=== PATIENT | female | born 1945 | race Caucasian/White ===

== ENCOUNTER → 2017-02-01 | Outpatient (CLI) | payer MEDICARE ==
[~2017-02-01] MED LIST: OMNIPAQUE 350 MG/ML, 100ML BOTTLE ONE
== END | disposition home or self-care (01) ==
LOC: CFH 13:20
PROVIDERS: ATTEND Family Medicine
DX: K57.30 Diverticulosis of large intestine without perforation or abscess without bleeding (principal); K76.89 Other specified diseases of liver; M48.54XA Collapsed vertebra, not elsewhere classified, thoracic region, initial encounter for fracture; M48.56XA Collapsed vertebra, not elsewhere classified, lumbar region, initial encounter for fracture; R93.8 Abnormal findings on diagnostic imaging of other specified body structures; M51.37 Other intervertebral disc degeneration, lumbosacral region; Z90.49 Acquired absence of other specified parts of digestive tract
CPT/HCPCS: 74177; Q9967

== ENCOUNTER 2017-03-09 08:55 | Day surgery (SDC) | payer MEDICARE ==
[2017-03-05 12:41] VITALS: BP 138/90
[~2017-03-09] VITALS: Ht 147.3 cm; Wt 35.9 kg
[~2017-03-09 08:55] MED LIST changes: +CALC1TAB72 PO; +FENTANYL PF 100 MCG/2ML ONE; +FOLI0.8T2 PO; +HYDR25TA6 PO; +INFL100V IV; +METH16TA2 PO; +METH2.5T PO; +MIDAZOLAM 1 MG/ML, 2ML ONE; +OMEP-110 PO; -OMNIPAQUE 350 MG/ML, 100ML BOTTLE ONE; +ONDA4TAB13 SL; +OXYC10TA6 PO; +POLY17PO3 PO; +SENN-66 PO; +TRAM50TA2 PO; +ZOLP-413 PO; +potassium PO
[2017-03-09] MEDS ORDERED: LACTATED RINGERS 1,000 ML IV SCH (09:21)
[2017-03-09] MEDS ORDERED: LIDOCAINE 1%, 2ML SQ PRN (09:30)
[2017-03-09 09:32] VITALS: BP 138/90
[2017-03-09] MEDS ORDERED: EPHEDRINE 50 MG/ML, 1ML ONE (10:40)
[2017-03-09] MEDS ORDERED: SUCCINYLCHOLINE 20 MG/ML, 10ML ONE (10:40)
[2017-03-09] MEDS ORDERED: PROPOFOL 10 MG/ML, 20ML ONE (10:40)
[2017-03-09] MEDS ORDERED: FENTANYL PF 100 MCG/2ML IV PRN (11:00)
[2017-03-09] MEDS ORDERED: METOCLOPRAMIDE 5 MG/ML, 2ML IV PRN (11:00)
[2017-03-09] MEDS ORDERED: HYDROmorphone 1 MG/ML, 1ML IV PRN (11:00)
[2017-03-09] MEDS ORDERED: ONDANSETRON 2MG/ML, 2ML IVPush PRN (11:00)
[2017-03-09] MEDS ORDERED: hydrALAzine 20 MG/ML, 1ML IV PRN (11:00)
[2017-03-09] MEDS ORDERED: OXYcodone 5 MG/5 ML ORAL.SOL UDC PO PRN (11:00)
[2017-03-09] MEDS ORDERED: ACETAMINOPHEN 325 MG TABLET PO PRN (11:00)
[2017-03-09] MEDS ORDERED: LABETALOL 5MG/ML, 20ML IV PRN (11:00)
[2017-03-09] MEDS ORDERED: OXYcodone 5 MG/5 ML ORAL.SOL UDC ONE (11:37)
== END 2017-03-09 14:10 ==
LOC: OUT 08:55
PROVIDERS: ATTEND Internal Medicine Geriatric Medicine
DX: K29.50 Unspecified chronic gastritis without bleeding (principal); K83.8 Other specified diseases of biliary tract; F10.10 Alcohol abuse, uncomplicated; Z88.1 Allergy status to other antibiotic agents; Z88.8 Allergy status to other drugs, medicaments and biological substances; Z87.39 Personal history of other diseases of the musculoskeletal system and connective tissue; Z98.49 Cataract extraction status, unspecified eye; Z90.710 Acquired absence of both cervix and uterus; Z98.890 Other specified postprocedural states; Z80.8 Family history of malignant neoplasm of other organs or systems; Z83.3 Family history of diabetes mellitus; Z82.49 Family history of ischemic heart disease and other diseases of the circulatory system
CPT/HCPCS: 43239; 43259; 88104; 88305; 88333; J0330; J2250; J2704; J3010; J7120

== ENCOUNTER 2018-11-29 06:51 | Day surgery (SDC) | payer MEDICARE ==
[~2018-11-29] VITALS: Ht 137.2 cm; Wt 29.9 kg
[~2018-11-29 06:51] MED LIST changes: -FENTANYL PF 100 MCG/2ML ONE; -MIDAZOLAM 1 MG/ML, 2ML ONE; +POLY17PO29 PO; -POLY17PO3 PO; -SENN-66 PO; +SENN1TAB59 PO
[2018-11-29] MEDS ORDERED: LACTATED RINGERS 1,000 ML IV SCH (07:23)
[2018-11-29 07:29] VITALS: BP 159/103
[2018-11-29 07:43] VITALS: BP 159/103
[2018-11-29] MEDS ORDERED: CITA20TA9 PO (07:56)
[2018-11-29 08:26] LABS: ALANINE AMINOTRANSFERASE 45 U/L (12-78); ALBUMIN 3.2 g/dL (3.4-5.0); ANION GAP 7 mmol/L (5-15); CHLORIDE 102 mmol/L (98-107); CREATININE 0.63 mg/dL (0.55-1.02)
[2018-11-29 08:29] LABS: ALKALINE PHOSPHATASE 444 U/L (45-117); BILIRUBIN,TOTAL 0.3 mg/dL (0.2-1.0); TOTAL PROTEIN 6.3 g/dL (6.4-8.2)
[2018-11-29] MEDS ORDERED: DIPHENHYDRAMINE 50 MG/ML, 1ML IVPush PRN (09:00)
[2018-11-29] MEDS ORDERED: EPHEDRINE 50 MG/ML, 1ML IM PRN (09:00)
[2018-11-29] MEDS ORDERED: MORPHINE SULFATE 4 MG/ML, 1ML IVPush PRN (09:00)
[2018-11-29] MEDS ORDERED: ONDANSETRON ODT 8 MG PO PRN (09:00)
[2018-11-29] MEDS ORDERED: DIAZEPAM 5 MG/ML, 2ML IVPush PRN (09:00)
[2018-11-29] MEDS ORDERED: ONDANSETRON 2MG/ML, 2ML IV PRN (09:00)
[2018-11-29] MEDS ORDERED: OXYcodone 5 MG/5 ML ORAL.SOL UDC PO PRN (09:00)
[2018-11-29] MEDS ORDERED: MIDAZOLAM 1 MG/ML, 2ML IV PRN (09:00)
[2018-11-29] MEDS ORDERED: FENTANYL PF 100 MCG/2ML IV PRN (09:00)
[2018-11-29] MEDS ORDERED: PROPOFOL 10 MG/ML, 20ML ONE ×3 (09:21→11:12)
[2018-11-29 09:28] LABS: MEAN CORPUSCULAR HEMOGLOBIN 28.2 pg (27.0-34.8); MEAN CORPUSCULAR HGB CONC 33.2 g/dL (32.4-35.8); MEAN CORPUSCULAR VOLUME 84.9 fL (80-100); MEAN PLATELET VOLUME 8.2 fL (7.4-10.4); PLATELET COUNT 290 x10^3/uL (130-400); RED BLOOD COUNT 4.83 x10^6/uL (3.82-5.3); RED CELL DISTRIBUTION WIDTH 17.2 % (9.6-15.2)
[2018-11-29] MEDS ORDERED: GLUCAGON 1 MG ONE (09:49)
[2018-11-29 09:56] LABS: MD YES
[2018-11-29 09:59] LABS: BAND#(MANUAL) 1.03 x10^3/uL; BANDS%(MANUAL) 5 % (0-7); LYMPH#(MANUAL) 3.08 x10^3/uL (1-3.4); LYMPHS% (MANUAL) 15 % (22-44); METAMYELOCYTES# (MANUAL) 0.82 x10^3/uL (0-0); METAMYELOCYTES% (MANUAL) 4 % (0-1); MONOS#(MANUAL) 1.03 x10^3/uL (0.3-2.7); MONOS% (MANUAL) 5 % (2-9); MYELOCYTES# (MANUAL) 0.62 x10^3/uL (0-0); MYELOCYTES% (MANUAL) 3 % (0-0); SEG#(MANUAL) 13.94 x10^3/uL (1.8-6.8); SEGS% (MANUAL) 68 % (42-75)
[2018-11-29 10:00] LABS: <PLATELET ESTIMATE> ADEQUATE; <PLT MORPHOLOGY> NORMAL PLT MORPH; ANISOCYTOSIS 1+; OVALOCYTES 1+
[2018-11-29] MEDS ORDERED: ONDANSETRON 2MG/ML, 2ML ONE (10:32)
[2018-11-29] MEDS ORDERED: PROMETHAZINE 25 MG SUPP PR ONE (12:00)
== END 2018-11-29 13:00 | disposition home or self-care (01) ==
LOC: OUT 06:51
PROVIDERS: ATTEND Internal Medicine
DX: D12.6 Benign neoplasm of colon, unspecified (principal); K31.9 Disease of stomach and duodenum, unspecified; R63.4 Abnormal weight loss; M06.9 Rheumatoid arthritis, unspecified; M32.9 Systemic lupus erythematosus, unspecified; Z68.1 Body mass index [BMI] 19.9 or less, adult; Z87.11 Personal history of peptic ulcer disease; Z79.899 Other long term (current) drug therapy; Z79.891 Long term (current) use of opiate analgesic; Z88.2 Allergy status to sulfonamides; Z88.8 Allergy status to other drugs, medicaments and biological substances; Z91.048 Other nonmedicinal substance allergy status; Z90.49 Acquired absence of other specified parts of digestive tract; Z98.1 Arthrodesis status; Z98.890 Other specified postprocedural states; Z83.3 Family history of diabetes mellitus; Z82.49 Family history of ischemic heart disease and other diseases of the circulatory system; Z80.9 Family history of malignant neoplasm, unspecified
CPT/HCPCS: 36415; 43239; 45380; 80053; 85025; 88305; 93005; J1610; J2405; J2704; J7120

== ENCOUNTER 2018-12-30 13:00 | Outpatient (CLI) | payer MEDICARE ==
[~2018-12-30 13:00] MED LIST changes: +CITA20TA9 PO
[2018-12-30] MEDS ORDERED: OMNIPAQUE 350 MG/ML, 75ML BOTTLE ONE (14:54)
== END 2018-12-30 23:59 | disposition home or self-care (01) ==
LOC: RAD 13:00
PROVIDERS: ATTEND Internal Medicine
DX: N82.3 Fistula of vagina to large intestine (principal)
CPT/HCPCS: 72193; Q9967

== ENCOUNTER → 2019-02-01 | Outpatient (CLI) | payer MEDICARE ==
[~2019-02-01] MED LIST changes: +AMOX1TAB61 PO; +CHOL100011 PO; +OXYC-302 PO; +POTASSIUM PO
== END | disposition home or self-care (01) ==
LOC: WOUND 08:26
PROVIDERS: ATTEND Internal Medicine
DX: Z93.3 Colostomy status (principal); M06.9 Rheumatoid arthritis, unspecified; G89.4 Chronic pain syndrome; M19.90 Unspecified osteoarthritis, unspecified site; Z90.49 Acquired absence of other specified parts of digestive tract; Z90.710 Acquired absence of both cervix and uterus; Z87.891 Personal history of nicotine dependence
CPT/HCPCS: G0463

== ENCOUNTER 2019-02-02 11:41 | Inpatient (IN) | payer MEDICARE ==
[~2019-02-02] VITALS: Ht 137.2 cm; Wt 35.4 kg
[2019-02-04 12:54] VITALS: BP 144/83
== END 2019-02-04 17:15 | disposition home health service (06) | DRG 330 ==
LOC: ORIP 11:41 → 4NOR 18:21 → DCLOUNGE 02-04 17:06
PROVIDERS: ADMIT Colon & Rectal Surgery; ATTEND Colon & Rectal Surgery
PROC: 0D1N4Z4 Bypass Sigmoid Colon to Cutaneous, Percutaneous Endoscopic Approach (ICD-10-PCS; principal; 2019-02-02)
PROC: 8E0W4CZ Robotic Assisted Procedure of Trunk Region, Percutaneous Endoscopic Approach (ICD-10-PCS; 2019-02-02)
PROC: 0DBN4ZZ Excision of Sigmoid Colon, Percutaneous Endoscopic Approach (ICD-10-PCS; 2019-02-02)
DX: K57.32 Diverticulitis of large intestine without perforation or abscess without bleeding (principal); N82.3 Fistula of vagina to large intestine; Z68.1 Body mass index [BMI] 19.9 or less, adult; M19.90 Unspecified osteoarthritis, unspecified site; D89.9 Disorder involving the immune mechanism, unspecified; M06.9 Rheumatoid arthritis, unspecified; G89.29 Other chronic pain; Z85.828 Personal history of other malignant neoplasm of skin; Z90.49 Acquired absence of other specified parts of digestive tract; Z90.710 Acquired absence of both cervix and uterus; Z80.8 Family history of malignant neoplasm of other organs or systems; Z82.49 Family history of ischemic heart disease and other diseases of the circulatory system; Z87.891 Personal history of nicotine dependence; E63.9 Nutritional deficiency, unspecified
CPT/HCPCS: 36415; 80048; 83735; 85025; 86850; 86900; 87070; 87075; 87205; 88307; C1729; G0378; J1100; J1170; J1650; J1885; J2250; J2405; J2543; J2704; J3010; J7509; J2370; J2765; J3490; J7120

== ENCOUNTER 2019-05-11 09:46 | Outpatient (CLI) | payer MEDICARE ==
[~2019-05-11 09:46] MED LIST changes: +DOCU-131 PO; +ENOX40SY4 SQ; +METH500T7 PO; +ONDA4TAB13 PO; +OXYC1TAB7 PO; +POLY17PO5 PO
== END 2019-05-11 23:59 | disposition home or self-care (01) ==
LOC: WOUND 09:46
PROVIDERS: ATTEND Podiatrist Foot & Ankle Surgery
DX: L97.212 Non-pressure chronic ulcer of right calf with fat layer exposed (principal); S81.812A Laceration without foreign body, left lower leg, initial encounter; M06.9 Rheumatoid arthritis, unspecified; G89.4 Chronic pain syndrome; I10 Essential (primary) hypertension; Z87.891 Personal history of nicotine dependence; Z90.49 Acquired absence of other specified parts of digestive tract; Z90.710 Acquired absence of both cervix and uterus; Z96.641 Presence of right artificial hip joint; Z88.2 Allergy status to sulfonamides; Z88.8 Allergy status to other drugs, medicaments and biological substances; X58.XXXA Exposure to other specified factors, initial encounter; Y92.89 Other specified places as the place of occurrence of the external cause; Y99.8 Other external cause status; Y93.89 Activity, other specified; Z93.3 Colostomy status
CPT/HCPCS: 11042; 11045; G0463

== ENCOUNTER 2019-05-16 08:11 | Outpatient (CLI) | payer MEDICARE | END 2019-05-16 23:59 | disposition home or self-care (01) | LOC: WOUND 08:11 | PROVIDERS: ATTEND Nurse Practitioner Family | DX: L97.212 Non-pressure chronic ulcer of right calf with fat layer exposed (principal); S81.812D Laceration without foreign body, left lower leg, subsequent encounter; G89.4 Chronic pain syndrome; I10 Essential (primary) hypertension; E46 Unspecified protein-calorie malnutrition; M05.59 Rheumatoid polyneuropathy with rheumatoid arthritis of multiple sites; A49.02 Methicillin resistant Staphylococcus aureus infection, unspecified site; Z87.891 Personal history of nicotine dependence; Z96.641 Presence of right artificial hip joint; Z90.49 Acquired absence of other specified parts of digestive tract; Z90.710 Acquired absence of both cervix and uterus; Z88.2 Allergy status to sulfonamides; Z88.8 Allergy status to other drugs, medicaments and biological substances; Z79.52 Long term (current) use of systemic steroids; Z79.1 Long term (current) use of non-steroidal anti-inflammatories (NSAID); Z68.21 Body mass index [BMI] 21.0-21.9, adult; Z93.3 Colostomy status; X58.XXXD Exposure to other specified factors, subsequent encounter | CPT/HCPCS: 11042; 11045 ==

== ENCOUNTER → 2019-05-23 | Outpatient (CLI) | payer MEDICARE | END | disposition home or self-care (01) | LOC: WOUND 08:54 | PROVIDERS: ATTEND Nurse Practitioner Family | DX: L97.212 Non-pressure chronic ulcer of right calf with fat layer exposed (principal); S81.812D Laceration without foreign body, left lower leg, subsequent encounter; M06.9 Rheumatoid arthritis, unspecified; G89.4 Chronic pain syndrome; I10 Essential (primary) hypertension; Z87.891 Personal history of nicotine dependence; Z90.49 Acquired absence of other specified parts of digestive tract; Z90.710 Acquired absence of both cervix and uterus; Z96.641 Presence of right artificial hip joint; Z88.2 Allergy status to sulfonamides; Z88.8 Allergy status to other drugs, medicaments and biological substances; Z93.3 Colostomy status; X58.XXXD Exposure to other specified factors, subsequent encounter | CPT/HCPCS: 11042; 11045; 97606 ==

== ENCOUNTER → 2019-05-31 | Outpatient (CLI) | payer MEDICARE | END | disposition home or self-care (01) | LOC: WOUND 09:44 | PROVIDERS: ATTEND Internal Medicine | DX: L89.896 Pressure-induced deep tissue damage of other site (principal); S81.812D Laceration without foreign body, left lower leg, subsequent encounter; S81.811D Laceration without foreign body, right lower leg, subsequent encounter; M05.60 Rheumatoid arthritis of unspecified site with involvement of other organs and systems; G89.4 Chronic pain syndrome; I10 Essential (primary) hypertension; E46 Unspecified protein-calorie malnutrition; Z87.891 Personal history of nicotine dependence; Z90.49 Acquired absence of other specified parts of digestive tract; Z90.710 Acquired absence of both cervix and uterus; Z96.641 Presence of right artificial hip joint; Z88.2 Allergy status to sulfonamides; Z88.8 Allergy status to other drugs, medicaments and biological substances; Z93.3 Colostomy status; A49.02 Methicillin resistant Staphylococcus aureus infection, unspecified site; Z79.52 Long term (current) use of systemic steroids; Z68.21 Body mass index [BMI] 21.0-21.9, adult; X58.XXXD Exposure to other specified factors, subsequent encounter | CPT/HCPCS: 11042; 11045 ==

== ENCOUNTER → 2019-06-07 | Outpatient (CLI) | payer MEDICARE | END | disposition home or self-care (01) | LOC: WOUND 13:07 | PROVIDERS: ATTEND Internal Medicine | DX: L89.896 Pressure-induced deep tissue damage of other site (principal); L97.222 Non-pressure chronic ulcer of left calf with fat layer exposed; M05.60 Rheumatoid arthritis of unspecified site with involvement of other organs and systems; M05.59 Rheumatoid polyneuropathy with rheumatoid arthritis of multiple sites; G89.4 Chronic pain syndrome; I10 Essential (primary) hypertension; E46 Unspecified protein-calorie malnutrition; A49.02 Methicillin resistant Staphylococcus aureus infection, unspecified site; Z87.891 Personal history of nicotine dependence; Z90.49 Acquired absence of other specified parts of digestive tract; Z90.710 Acquired absence of both cervix and uterus; Z96.641 Presence of right artificial hip joint; Z88.2 Allergy status to sulfonamides; Z88.8 Allergy status to other drugs, medicaments and biological substances; Z79.52 Long term (current) use of systemic steroids; Z68.21 Body mass index [BMI] 21.0-21.9, adult; Z79.1 Long term (current) use of non-steroidal anti-inflammatories (NSAID); Z93.3 Colostomy status | CPT/HCPCS: 11042; 11045 ==

== ENCOUNTER 2019-06-14 08:50 | Outpatient (CLI) | END 2019-06-14 23:59 | disposition home or self-care (01) | LOC: WOUND 08:50 | PROVIDERS: ATTEND Internal Medicine | DX: L89.896 Pressure-induced deep tissue damage of other site (principal); L97.222 Non-pressure chronic ulcer of left calf with fat layer exposed; M05.60 Rheumatoid arthritis of unspecified site with involvement of other organs and systems; M05.59 Rheumatoid polyneuropathy with rheumatoid arthritis of multiple sites; G89.4 Chronic pain syndrome; I10 Essential (primary) hypertension; E46 Unspecified protein-calorie malnutrition; A49.02 Methicillin resistant Staphylococcus aureus infection, unspecified site; Z87.891 Personal history of nicotine dependence; Z90.49 Acquired absence of other specified parts of digestive tract; Z90.710 Acquired absence of both cervix and uterus; Z96.641 Presence of right artificial hip joint; Z88.2 Allergy status to sulfonamides; Z88.8 Allergy status to other drugs, medicaments and biological substances; Z79.52 Long term (current) use of systemic steroids; Z68.21 Body mass index [BMI] 21.0-21.9, adult; Z79.1 Long term (current) use of non-steroidal anti-inflammatories (NSAID); Z93.3 Colostomy status | CPT/HCPCS: 11042; 11045 ==

== ENCOUNTER 2019-06-21 13:28 | Outpatient (CLI) | payer MEDICARE | END 2019-06-21 23:59 | disposition home or self-care (01) | LOC: WOUND 13:28 | PROVIDERS: ATTEND Internal Medicine | DX: L89.896 Pressure-induced deep tissue damage of other site (principal); L97.222 Non-pressure chronic ulcer of left calf with fat layer exposed; M05.60 Rheumatoid arthritis of unspecified site with involvement of other organs and systems; M05.59 Rheumatoid polyneuropathy with rheumatoid arthritis of multiple sites; G89.4 Chronic pain syndrome; I10 Essential (primary) hypertension; E46 Unspecified protein-calorie malnutrition; A49.02 Methicillin resistant Staphylococcus aureus infection, unspecified site; Z87.891 Personal history of nicotine dependence; Z90.49 Acquired absence of other specified parts of digestive tract; Z90.710 Acquired absence of both cervix and uterus; Z96.641 Presence of right artificial hip joint; Z88.2 Allergy status to sulfonamides; Z88.8 Allergy status to other drugs, medicaments and biological substances; Z79.52 Long term (current) use of systemic steroids; Z68.21 Body mass index [BMI] 21.0-21.9, adult; Z79.1 Long term (current) use of non-steroidal anti-inflammatories (NSAID); Z93.3 Colostomy status | CPT/HCPCS: 97597; 97598 ==

== ENCOUNTER → 2019-06-28 | Outpatient (CLI) | payer MEDICARE | END | disposition home or self-care (01) | LOC: WOUND 09:35 | PROVIDERS: ATTEND Internal Medicine | DX: L89.896 Pressure-induced deep tissue damage of other site (principal); L97.222 Non-pressure chronic ulcer of left calf with fat layer exposed; M05.60 Rheumatoid arthritis of unspecified site with involvement of other organs and systems; M05.59 Rheumatoid polyneuropathy with rheumatoid arthritis of multiple sites; G89.4 Chronic pain syndrome; I10 Essential (primary) hypertension; E46 Unspecified protein-calorie malnutrition; A49.02 Methicillin resistant Staphylococcus aureus infection, unspecified site; Z87.891 Personal history of nicotine dependence; Z90.49 Acquired absence of other specified parts of digestive tract; Z90.710 Acquired absence of both cervix and uterus; Z96.641 Presence of right artificial hip joint; Z88.2 Allergy status to sulfonamides; Z88.8 Allergy status to other drugs, medicaments and biological substances; Z79.52 Long term (current) use of systemic steroids; Z68.21 Body mass index [BMI] 21.0-21.9, adult; Z79.1 Long term (current) use of non-steroidal anti-inflammatories (NSAID); Z93.3 Colostomy status | CPT/HCPCS: 97597; 97598 ==

== ENCOUNTER → 2019-07-05 | Outpatient (CLI) | payer MEDICARE | END | disposition home or self-care (01) | LOC: WOUND 12:59 | PROVIDERS: ATTEND Internal Medicine | DX: L89.896 Pressure-induced deep tissue damage of other site (principal); L97.222 Non-pressure chronic ulcer of left calf with fat layer exposed; M05.60 Rheumatoid arthritis of unspecified site with involvement of other organs and systems; M05.59 Rheumatoid polyneuropathy with rheumatoid arthritis of multiple sites; G89.4 Chronic pain syndrome; I10 Essential (primary) hypertension; E46 Unspecified protein-calorie malnutrition; A49.02 Methicillin resistant Staphylococcus aureus infection, unspecified site; Z87.891 Personal history of nicotine dependence; Z90.49 Acquired absence of other specified parts of digestive tract; Z90.710 Acquired absence of both cervix and uterus; Z96.641 Presence of right artificial hip joint; Z88.2 Allergy status to sulfonamides; Z88.8 Allergy status to other drugs, medicaments and biological substances; Z79.52 Long term (current) use of systemic steroids; Z68.21 Body mass index [BMI] 21.0-21.9, adult; Z79.1 Long term (current) use of non-steroidal anti-inflammatories (NSAID); Z93.3 Colostomy status | CPT/HCPCS: 97597; 97598 ==

== ENCOUNTER 2019-07-24 10:09 | Outpatient (CLI) | payer MEDICARE | END 2019-07-24 23:59 | disposition home or self-care (01) | LOC: WOUND 10:09 | PROVIDERS: ATTEND Surgery | DX: L89.896 Pressure-induced deep tissue damage of other site (principal); L97.222 Non-pressure chronic ulcer of left calf with fat layer exposed; M05.60 Rheumatoid arthritis of unspecified site with involvement of other organs and systems; M05.59 Rheumatoid polyneuropathy with rheumatoid arthritis of multiple sites; G89.4 Chronic pain syndrome; I10 Essential (primary) hypertension; E46 Unspecified protein-calorie malnutrition; A49.02 Methicillin resistant Staphylococcus aureus infection, unspecified site; Z87.891 Personal history of nicotine dependence; Z90.49 Acquired absence of other specified parts of digestive tract; Z90.710 Acquired absence of both cervix and uterus; Z96.641 Presence of right artificial hip joint; Z88.2 Allergy status to sulfonamides; Z88.8 Allergy status to other drugs, medicaments and biological substances; Z79.52 Long term (current) use of systemic steroids; Z68.21 Body mass index [BMI] 21.0-21.9, adult; Z79.1 Long term (current) use of non-steroidal anti-inflammatories (NSAID); Z93.3 Colostomy status | CPT/HCPCS: G0463 ==

== ENCOUNTER → 2019-08-07 | Outpatient (CLI) | payer MEDICARE | END | disposition home or self-care (01) | LOC: WOUND 09:50 | PROVIDERS: ATTEND Internal Medicine | DX: L89.896 Pressure-induced deep tissue damage of other site (principal); L97.222 Non-pressure chronic ulcer of left calf with fat layer exposed; M05.60 Rheumatoid arthritis of unspecified site with involvement of other organs and systems; M05.59 Rheumatoid polyneuropathy with rheumatoid arthritis of multiple sites; G89.4 Chronic pain syndrome; I10 Essential (primary) hypertension; E46 Unspecified protein-calorie malnutrition; A49.02 Methicillin resistant Staphylococcus aureus infection, unspecified site; Z87.891 Personal history of nicotine dependence; Z90.49 Acquired absence of other specified parts of digestive tract; Z90.710 Acquired absence of both cervix and uterus; Z96.641 Presence of right artificial hip joint; Z88.2 Allergy status to sulfonamides; Z88.8 Allergy status to other drugs, medicaments and biological substances; Z79.52 Long term (current) use of systemic steroids; Z68.21 Body mass index [BMI] 21.0-21.9, adult; Z93.3 Colostomy status | CPT/HCPCS: G0463 ==